=== PATIENT | male | born 1950 | race African-American/Black ===

== ENCOUNTER 2021-01-17 10:11 | Inpatient (IN) | payer MEDICARE ==
[~2021-01-17] VITALS: Ht 185.4 cm; Wt 68.3 kg
[2021-01-17] MEDS ORDERED: SODIUM CHLORIDE 0.9% 1000ML 1,000 ML IV STA (10:33)
[2021-01-17 10:44] LABS: BASOPHILS # (AUTO) 0.1 (0.0-0.1); BASOPHILS % 1.1 % (0.0-1.0); EOSINOPHILS # (AUTO) 0.3 (0.0-0.4); EOSINOPHILS % 3.8 % (0.0-6.0); HEMATOCRIT 21.4 % (38.2-49.6); LYMPHOCYTES # (AUTO) 1.2 (1.0-3.2); LYMPHOCYTES % 16.7 % (18.0-39.1); MEAN CORPUSCULAR HEMOGLOBIN 17.4 pg (28-32); MEAN CORPUSCULAR HGB CONC 26.2 g/dL (31-35); MEAN CORPUSCULAR VOLUME 66.7 fL (81-99); MONOCYTES # (AUTO) 0.7 (0.2-0.8); MONOCYTES % 9.5 % (4.4-11.3); NEUTROPHILS # (AUTO) 5.1 (2.1-6.9); NEUTROPHILS % 68.5 % (38.7-80.0); PLATELET COUNT 749 x10e3/uL (140-360); RED BLOOD COUNT 3.21 x10e6/uL (4.3-5.7); RED CELL DISTRIBUTION WIDTH 18.7 % (11.7-14.4)
[2021-01-17] MEDS ORDERED: SODIUM CHLORIDE 0.9% 250ML 250 ML IV ONE (10:45)
[2021-01-17 10:48] LABS: HEMOGLOBIN 5.6 g/dL (14.0-18.0)
[2021-01-17 11:00] LABS: INR 1.02; PROTHROMBIN TIME 14.2 seconds (11.9-14.5)
[2021-01-17 11:01] LABS: PARTIAL THROMBOPLASTIN TIME 31.3 seconds (23.8-35.5)
[2021-01-17 11:09] LABS: ALBUMIN 3.1 g/dL (3.5-5.0); ALBUMIN/GLOBULIN RATIO 0.7 (0.8-2.0); ANION GAP 15.4 mmol/L (8-16); CALCIUM 8.8 mg/dL (8.4-10.2); CREATININE, SERUM 1.69 mg/dL (0.72-1.25); POTASSIUM 4.4 mmol/L (3.5-5.1)
[2021-01-17 11:18] LABS: PLATELET ESTIMATE MARKEDLY INCREASED
[2021-01-17 11:19] LABS: HYPOCHROMASIA MODERATE; RBC MORPHOLOGY COMMENT ABNORMAL; TARGET CELLS MODERATE
[2021-01-17 11:20] LABS: ANISOCYTOSIS MODERATE; SCHISTOCYTES FEW
[2021-01-17 11:22] LABS: POLYCHROMASIA FEW
[2021-01-17 11:23] LABS: MICROCYTOSIS MARKED
[2021-01-17] MEDS ORDERED: ONDANSETRON HCL INJ 2MG/ML 2ML 2 MG/ML VIAL IV PRN (11:45)
[2021-01-17 21:00] VITALS: BP 156/83
[2021-01-17] MEDS ORDERED: LISINOPRIL-HCT1 EACH PO (22:55)
[2021-01-17] MEDS ORDERED: MECLIZINE HCL25 MG PO (22:55)
[2021-01-17] MEDS ORDERED: HYDROCODON-ACE1 EA11 PO (22:55)
[2021-01-17] MEDS ORDERED: AMLODIPINE BESY10 MG PO (22:55)
[2021-01-17 23:46] VITALS: BP 156/83
[2021-01-18] VITALS (8 sets, daily range): BP systolic 110–124; BP diastolic 75–92
[2021-01-18] MEDS ORDERED: FUROSEMIDE INJ 10 MG/ML 4 ML VIAL IV ONE (00:15)
[2021-01-18] MEDS ORDERED: HYDROCODONE/APAP 5MG-325MG TAB PO PRN (00:15)
[2021-01-18] MEDS ORDERED: HYDRALAZINE HCL 25 MG TAB PO PRN (00:15)
[2021-01-18 06:10] LABS: BASOPHILS # (AUTO) 0.1 (0.0-0.1); BASOPHILS % 0.7 % (0.0-1.0); EOSINOPHILS # (AUTO) 0.3 (0.0-0.4); EOSINOPHILS % 3.1 % (0.0-6.0); HEMATOCRIT 28.3 % (38.2-49.6); HEMOGLOBIN 8.2 g/dL (14.0-18.0); LYMPHOCYTES # (AUTO) 1.2 (1.0-3.2); LYMPHOCYTES % 12.6 % (18.0-39.1); MEAN CORPUSCULAR VOLUME 69.2 fL (81-99); MONOCYTES # (AUTO) 0.7 (0.2-0.8); MONOCYTES % 7.8 % (4.4-11.3); NEUTROPHILS # (AUTO) 6.9 (2.1-6.9); NEUTROPHILS % 75.3 % (38.7-80.0); PLATELET COUNT 649 x10e3/uL (140-360); RED BLOOD COUNT 4.09 x10e6/uL (4.3-5.7); RED CELL DISTRIBUTION WIDTH 21.2 % (11.7-14.4)
[2021-01-18] MEDS: AMLODIPINE BESYLATE 10 MG TAB PO SCH (06:39)
[2021-01-18 06:52] LABS: ALBUMIN/GLOBULIN RATIO 0.7 (0.8-2.0); ANION GAP 15.3 mmol/L (8-16); CALCIUM 8.8 mg/dL (8.4-10.2); CREATININE, SERUM 1.36 mg/dL (0.72-1.25); POTASSIUM 4.3 mmol/L (3.5-5.1)
[2021-01-18] MEDS: IRON SUCROSE 100 MG in SODIUM CHLORIDE 0.9% 100 ML 100 ML IV SCH (10:00)
[2021-01-18] MEDS ORDERED: SODIUM CHLORIDE 0.9% 250ML 250 ML ONE (10:54)
[2021-01-18] MEDS ORDERED: ONDANSETRON HCL 4 MG ORAL DISINTEGRATING TAB PO PRN (11:00)
[2021-01-18 23:25] LABS: % IRON SATURATION 16 % (15-50); IRON 54 ug/dL (65-175); TOTAL IRON BINDING CAPACITY 332 ug/dL (261-478); TRANSFERRIN 237 mg/dL (174-364)
[2021-01-19] VITALS (7 sets, daily range): BP systolic 100–131; BP diastolic 72–85
[2021-01-19] MEDS ORDERED: CYANOCOBALAMIN INJ 1,000 MCG/ML VIAL IM ONE (00:30)
[2021-01-19 05:31] LABS: BASOPHILS # (AUTO) 0.1 (0.0-0.1); BASOPHILS % 0.6 % (0.0-1.0); EOSINOPHILS # (AUTO) 0.3 (0.0-0.4); EOSINOPHILS % 3.2 % (0.0-6.0); HEMATOCRIT 25.3 % (38.2-49.6); LYMPHOCYTES # (AUTO) 1.6 (1.0-3.2); LYMPHOCYTES % 18.1 % (18.0-39.1); MEAN CORPUSCULAR HEMOGLOBIN 20.1 pg (28-32); MEAN CORPUSCULAR HGB CONC 29.6 g/dL (31-35); MEAN CORPUSCULAR VOLUME 67.8 fL (81-99); MONOCYTES # (AUTO) 0.9 (0.2-0.8); NEUTROPHILS # (AUTO) 5.9 (2.1-6.9); NEUTROPHILS % 67.6 % (38.7-80.0); PLATELET COUNT 655 x10e3/uL (140-360); RED BLOOD COUNT 3.73 x10e6/uL (4.3-5.7); RED CELL DISTRIBUTION WIDTH 21.2 % (11.7-14.4)
[2021-01-19 05:42] LABS: HEMOGLOBIN 7.5 g/dL (14.0-18.0)
[2021-01-19 05:44] LABS: CALCIUM 9.1 mg/dL (8.4-10.2); CREATININE, SERUM 1.72 mg/dL (0.72-1.25)
[2021-01-19] MEDS: AMLODIPINE BESYLATE 10 MG TAB PO SCH (06:29)
[2021-01-19 07:05] LABS: EOSINOPHILS % (MANUAL) 2 % (0-7); LYMPHOCYTES % (MANUAL) 12 % (19-48); MONOCYTES % (MANUAL) 6 % (3.4-9.0); NEUTROPHILS % (MANUAL) 80 % (40-74); PLATELET ESTIMATE MODERATELY INCREASED; PLATELET MORPHOLOGY COMMENT NORMAL
[2021-01-19 07:06] LABS: RBC MORPHOLOGY COMMENT NORMAL
[2021-01-19] MEDS: CYANOCOBALAMIN INJ 1,000 MCG/ML VIAL IM SCH (09:09)
[2021-01-19] MEDS: IRON SUCROSE 100 MG in SODIUM CHLORIDE 0.9% 100 ML 100 ML IV SCH (09:11)
[2021-01-19] MEDS ORDERED: SODIUM CHLORIDE 0.9% 50ML 50 ML ONE (11:20)
[2021-01-19] MEDS ORDERED: IOPAMIDOL 370 MG/ML 200 ML INFUS..BTL INJ ONE (11:21)
[2021-01-19] MEDS ORDERED: DIATRIZOATE MEGL/DIATRIZOA SOD 30 ML BTL PO ONE (11:21)
[2021-01-19] MEDS ORDERED: INFLUENZA VIRUS VAC SPLIT INJ 0.5 ML SYR IM SCH (14:00)
[2021-01-19] MEDS ORDERED: PNEUMOCOCCAL VACCINE POLYVALENT 23 MCG/0.5 ML VIAL IM SCH (14:00)
[2021-01-20] VITALS (8 sets, daily range): BP systolic 100–126; BP diastolic 66–82
[2021-01-20] MEDS: AMLODIPINE BESYLATE 10 MG TAB PO SCH (06:06)
[2021-01-20 06:48] LABS: ANION GAP 13.5 mmol/L (8-16); CALCIUM 8.7 mg/dL (8.4-10.2); CREATININE, SERUM 1.53 mg/dL (0.72-1.25); POTASSIUM 4.5 mmol/L (3.5-5.1)
[2021-01-20 06:49] LABS: BASOPHILS # (AUTO) 0.1 (0.0-0.1); BASOPHILS % 0.9 % (0.0-1.0); EOSINOPHILS # (AUTO) 0.4 (0.0-0.4); EOSINOPHILS % 3.6 % (0.0-6.0); HEMATOCRIT 27.7 % (38.2-49.6); HEMOGLOBIN 7.9 g/dL (14.0-18.0); LYMPHOCYTES # (AUTO) 1.7 (1.0-3.2); LYMPHOCYTES % 16.1 % (18.0-39.1); MEAN CORPUSCULAR HEMOGLOBIN 19.9 pg (28-32); MEAN CORPUSCULAR HGB CONC 28.5 g/dL (31-35); MEAN CORPUSCULAR VOLUME 69.8 fL (81-99); MONOCYTES # (AUTO) 1.1 (0.2-0.8); MONOCYTES % 10.3 % (4.4-11.3); NEUTROPHILS # (AUTO) 7.3 (2.1-6.9); NEUTROPHILS % 68.4 % (38.7-80.0); PLATELET COUNT 633 x10e3/uL (140-360); RED BLOOD COUNT 3.97 x10e6/uL (4.3-5.7); RED CELL DISTRIBUTION WIDTH 22.5 % (11.7-14.4)
[2021-01-20] MEDS: CYANOCOBALAMIN INJ 1,000 MCG/ML VIAL IM SCH (09:36)
[2021-01-20 09:47] LABS: ANISOCYTOSIS MARKED; HYPOCHROMASIA MARKED; MICROCYTOSIS MARKED; PLATELET ESTIMATE MODERATELY INCREASED; PLATELET MORPHOLOGY COMMENT NORMAL; RBC MORPHOLOGY COMMENT ABNORMAL
[2021-01-20 09:48] LABS: SCHISTOCYTES RARE; TARGET CELLS FEW
[2021-01-20] MEDS: IRON SUCROSE 100 MG in SODIUM CHLORIDE 0.9% 100 ML 100 ML IV SCH (10:08)
[2021-01-20] MEDS: SODIUM CHLORIDE 0.9% 1000ML 1,000 ML IV SCH ×2 (11:14→20:15)
[2021-01-21] VITALS (7 sets, daily range): BP systolic 105–116; BP diastolic 56–78
[2021-01-21] MEDS: AMLODIPINE BESYLATE 10 MG TAB PO SCH (06:00)
[2021-01-21] MEDS: SODIUM CHLORIDE 0.9% 1000ML 1,000 ML IV SCH (06:15)
[2021-01-21 06:20] LABS: BASOPHILS # (AUTO) 0.1 (0.0-0.1); BASOPHILS % 0.7 % (0.0-1.0); EOSINOPHILS # (AUTO) 0.4 (0.0-0.4); EOSINOPHILS % 3.6 % (0.0-6.0); HEMATOCRIT 26.1 % (38.2-49.6); HEMOGLOBIN 7.1 g/dL (14.0-18.0); LYMPHOCYTES # (AUTO) 1.2 (1.0-3.2); LYMPHOCYTES % 12.5 % (18.0-39.1); MEAN CORPUSCULAR HEMOGLOBIN 20.1 pg (28-32); MEAN CORPUSCULAR HGB CONC 27.2 g/dL (31-35); MEAN CORPUSCULAR VOLUME 73.7 fL (81-99); MONOCYTES # (AUTO) 0.9 (0.2-0.8); MONOCYTES % 9.5 % (4.4-11.3); NEUTROPHILS # (AUTO) 7.1 (2.1-6.9); PLATELET COUNT 496 x10e3/uL (140-360); RED BLOOD COUNT 3.54 x10e6/uL (4.3-5.7); RED CELL DISTRIBUTION WIDTH 23.6 % (11.7-14.4)
[2021-01-21 06:43] LABS: ANION GAP 13.8 mmol/L (8-16); CALCIUM 8.3 mg/dL (8.4-10.2); CREATININE, SERUM 1.24 mg/dL (0.72-1.25); POTASSIUM 4.8 mmol/L (3.5-5.1)
[2021-01-21] MEDS ORDERED: ACETAMINOPHEN 325 MG TAB PO STA (09:21)
[2021-01-21] MEDS ORDERED: DEXAMETHASONE SOD PHOS 10 MG/1 ML VIAL IV ONE (09:30)
[2021-01-21] MEDS ORDERED: FUROSEMIDE INJ 10 MG/ML 2 ML VIAL IV ONE (09:30)
[2021-01-21] MEDS ORDERED: SODIUM CHLORIDE 0.9% 250ML 250 ML IV ONE (09:30)
[2021-01-21] MEDS: IRON SUCROSE 100 MG in SODIUM CHLORIDE 0.9% 100 ML 100 ML IV SCH (09:46)
[2021-01-21] MEDS: CYANOCOBALAMIN INJ 1,000 MCG/ML VIAL IM SCH (09:46)
[2021-01-22] VITALS (7 sets, daily range): BP systolic 108–120; BP diastolic 75–77
[2021-01-22] MEDS ORDERED: ACETAMINOPHEN 325 MG TAB PO STA (04:17)
[2021-01-22] MEDS ORDERED: DEXAMETHASONE SOD PHOS 10 MG/1 ML VIAL IV ONE (04:30)
[2021-01-22] MEDS ORDERED: SODIUM CHLORIDE 0.9% 250ML 250 ML IV ONE (04:30)
[2021-01-22] MEDS ORDERED: FUROSEMIDE INJ 10 MG/ML 2 ML VIAL IV ONE (04:30)
[2021-01-22] MEDS ORDERED: SODIUM CHLORIDE 0.9% 50ML 50 ML ONE (04:34)
[2021-01-22] MEDS: AMLODIPINE BESYLATE 10 MG TAB PO SCH (05:14)
[2021-01-22 05:17] LABS: BASOPHILS # (AUTO) 0.1 (0.0-0.1); BASOPHILS % 0.7 % (0.0-1.0); EOSINOPHILS # (AUTO) 0.4 (0.0-0.4); EOSINOPHILS % 4.1 % (0.0-6.0); HEMOGLOBIN 7.2 g/dL (14.0-18.0); LYMPHOCYTES # (AUTO) 1.5 (1.0-3.2); LYMPHOCYTES % 15.6 % (18.0-39.1); MEAN CORPUSCULAR HEMOGLOBIN 20.1 pg (28-32); MEAN CORPUSCULAR HGB CONC 28.8 g/dL (31-35); MEAN CORPUSCULAR VOLUME 69.8 fL (81-99); MONOCYTES % 10.4 % (4.4-11.3); NEUTROPHILS # (AUTO) 6.6 (2.1-6.9); NEUTROPHILS % 68.4 % (38.7-80.0); PLATELET COUNT 561 x10e3/uL (140-360); RED BLOOD COUNT 3.58 x10e6/uL (4.3-5.7); RED CELL DISTRIBUTION WIDTH 23.9 % (11.7-14.4)
[2021-01-22 05:52] LABS: ANION GAP 12.2 mmol/L (8-16); CALCIUM 8.2 mg/dL (8.4-10.2); CREATININE, SERUM 1.23 mg/dL (0.72-1.25); POTASSIUM 4.2 mmol/L (3.5-5.1)
[2021-01-22 07:31] LABS: ANISOCYTOSIS MODERATE; PLATELET ESTIMATE SLIGHTLY INCREASED; PLATELET MORPHOLOGY COMMENT NORMAL
[2021-01-22 07:32] LABS: HYPOCHROMASIA MARKED; MICROCYTOSIS MODERATE; SCHISTOCYTES RARE; TARGET CELLS FEW
[2021-01-22] MEDS: CYANOCOBALAMIN INJ 1,000 MCG/ML VIAL IM SCH (08:52)
[2021-01-22] MEDS ORDERED: SODIUM CHLORIDE 0.9% 250ML 250 ML ONE (09:15)
[2021-01-22] MEDS: IRON SUCROSE 100 MG in SODIUM CHLORIDE 0.9% 100 ML 100 ML IV SCH (13:00)
[2021-01-23] VITALS (7 sets, daily range): BP systolic 112–126; BP diastolic 67–85
[2021-01-23 05:31] LABS: BASOPHILS # (AUTO) 0.1 (0.0-0.1); BASOPHILS % 0.5 % (0.0-1.0); EOSINOPHILS # (AUTO) 0.1 (0.0-0.4); HEMATOCRIT 31.4 % (38.2-49.6); HEMOGLOBIN 9.3 g/dL (14.0-18.0); LYMPHOCYTES # (AUTO) 1.5 (1.0-3.2); LYMPHOCYTES % 11.4 % (18.0-39.1); MEAN CORPUSCULAR HEMOGLOBIN 21.6 pg (28-32); MEAN CORPUSCULAR HGB CONC 29.6 g/dL (31-35); MONOCYTES # (AUTO) 1.3 (0.2-0.8); MONOCYTES % 9.3 % (4.4-11.3); NEUTROPHILS # (AUTO) 10.4 (2.1-6.9); NEUTROPHILS % 77.1 % (38.7-80.0); PLATELET COUNT 527 x10e3/uL (140-360); RED CELL DISTRIBUTION WIDTH 24.1 % (11.7-14.4)
[2021-01-23] MEDS: AMLODIPINE BESYLATE 10 MG TAB PO SCH (05:51)
[2021-01-23] MEDS: IRON SUCROSE 100 MG in SODIUM CHLORIDE 0.9% 100 ML 100 ML IV SCH (09:01)
[2021-01-23] MEDS: CYANOCOBALAMIN INJ 1,000 MCG/ML VIAL IM SCH (09:01)
[2021-01-23 10:14] LABS: PLATELET ESTIMATE SLIGHTLY INCREASED; PLATELET MORPHOLOGY COMMENT NORMAL
[2021-01-23 10:15] LABS: ANISOCYTOSIS MARKED; HYPOCHROMASIA MARKED; MICROCYTOSIS MODERATE; RBC MORPHOLOGY COMMENT ABNORMAL; SCHISTOCYTES RARE; TARGET CELLS FEW
[2021-01-23] MEDS ORDERED: BISACODYL 5 MG TAB EC PO STA (17:48)
[2021-01-23] MEDS ORDERED: BISACODYL 5 MG TAB EC PO ONE ×2 (19:00→20:00)
[2021-01-23] MEDS ORDERED: CITRATE OF MAGNESIA 300ML BOTTLE PO ONE (23:00)
[2021-01-24] VITALS: BP 134/95
[2021-01-24 04:00] VITALS: BP 128/90
[2021-01-24] MEDS ORDERED: CITRATE OF MAGNESIA 300ML BOTTLE PO ONE (05:00)
[2021-01-24 05:09] LABS: BASOPHILS # (AUTO) 0.1 (0.0-0.1); BASOPHILS % 0.8 % (0.0-1.0); EOSINOPHILS # (AUTO) 0.4 (0.0-0.4); EOSINOPHILS % 4.4 % (0.0-6.0); HEMOGLOBIN 9.3 g/dL (14.0-18.0); LYMPHOCYTES # (AUTO) 1.4 (1.0-3.2); LYMPHOCYTES % 15.3 % (18.0-39.1); MEAN CORPUSCULAR HEMOGLOBIN 21.5 pg (28-32); MEAN CORPUSCULAR HGB CONC 29.1 g/dL (31-35); MEAN CORPUSCULAR VOLUME 74.1 fL (81-99); MONOCYTES # (AUTO) 0.8 (0.2-0.8); MONOCYTES % 8.2 % (4.4-11.3); NEUTROPHILS # (AUTO) 6.5 (2.1-6.9); NEUTROPHILS % 70.8 % (38.7-80.0); PLATELET COUNT 511 x10e3/uL (140-360); RED BLOOD COUNT 4.32 x10e6/uL (4.3-5.7); RED CELL DISTRIBUTION WIDTH 24.9 % (11.7-14.4)
[2021-01-24] MEDS: AMLODIPINE BESYLATE 10 MG TAB PO SCH (06:25)
[2021-01-24] MEDS: CYANOCOBALAMIN INJ 1,000 MCG/ML VIAL IM SCH (09:00)
[2021-01-24] MEDS ORDERED: PANTOPRAZOLE SOD 40 MG TABEC PO SCH (09:00)
[2021-01-24] MEDS: IRON SUCROSE 100 MG in SODIUM CHLORIDE 0.9% 100 ML 100 ML IV SCH (10:30)
[2021-01-24 11:04] VITALS: BP 115/88
[2021-01-24 12:00] VITALS: BP 109/83
== END 2021-01-24 14:05 | disposition home or self-care (01) | DRG 374 ==
LOC: ER 11:13 → ERHOLD 12:23 → MED/SURG 20:15
PROVIDERS: ADMIT Internal Medicine; ATTEND Internal Medicine
PROC: 30233N1 Transfusion of Nonautologous Red Blood Cells into Peripheral Vein, Percutaneous Approach (ICD-10-PCS; principal; 2021-01-17)
DX: C19 Malignant neoplasm of rectosigmoid junction (principal); E43 Unspecified severe protein-calorie malnutrition; C77.5 Secondary and unspecified malignant neoplasm of intrapelvic lymph nodes; Z68.1 Body mass index [BMI] 19.9 or less, adult; I10 Essential (primary) hypertension; D63.0 Anemia in neoplastic disease; Z20.822 Contact with and (suspected) exposure to COVID-19; F12.90 Cannabis use, unspecified, uncomplicated; Z72.89 Other problems related to lifestyle; N28.9 Disorder of kidney and ureter, unspecified
CPT/HCPCS: 36415; 71260; 74177; 80048; 80053; 82378; 82607; 82728; 82746; 83540; 84466; 85025; 85045; 85610; 85730; 86850; 86900; 86920; 94799; 99283; J1100; J1756; J1940; J3420; J7030; J7050; P9016; Q9967; U0002